=== PATIENT | female | born 1990 | race Caucasian/White ===

== ENCOUNTER 2023-01-05 17:26 | Emergency (ER) | payer BC, SELFPAY ==
[2023-01-05 17:36] VITALS: BP 136/81; PULSE 74; RESP 20; TEMP 36.9; O2SAT 100
[2023-01-05 17:39] VITALS: BP 136/81; PULSE 74; RESP 20; TEMP 36.9; O2SAT 100
--- NOTE | 2023-01-05 17:40 | ED.SKABFB ---
HPI - Skin/Abscess/Foreign Bdy General Chief complaint: Skin/Abscess/Foreign Body Stated complaint: Poison marco or oak Time Seen by Provider: 01/05/23 17:40 Source: patient Mode of arrival: ambulatory Limitations: no limitations History of Present Illness HPI narrative: 32-year-old female presenting for complaint of rash spreading to the face, neck, chest, abdomen over the past week. Denies lip, tongue, or throat swelling, shortness of breath or wheezing. Denies changes to soap, detergent, lotion, or any other exposures. Rash started after working in the yard. Sites are itchy. Denies pain or drainage. Denies contacts with similar symptoms. Taking Benadryl and applying calamine lotion. Related Data Allergies Allergy/AdvReac Type Severity Reaction Status Date / Time No Known Allergies Allergy Verified 01/05/23 17:39 Review of Systems Review of Systems: CONSTITUTIONAL: Denies body aches, fever, chills, or sweats. EYES: Denies visual changes, redness, or discharge. ENT: Denies rhinorrhea, congestion CARDIOVASCULAR: Denies chest pain, palpitations, or edema. RESPIRATORY: Denies cough or dyspnea. GASTROINTESTINAL: Denies abdominal pain, nausea, vomiting, or diarrhea. SKIN: per HPI MUSCULOSKELETAL: Denies back pain, joint pain, or myalgia. NEUROLOGIC: Denies headache, numbness, tingling, or weakness. [facility] Past Medical History Medical History (Updated 01/05/23 @ 17:49 by Manju Armas APRN) No pertinent past medical history Comments At time of signature, I have reviewed and agree with nursing past medical, surgical, social and family history unless otherwise noted. Please see nursing chart for further information. There is no relevant family history pertinent to the presenting complaint Exam Narrative: GENERAL: Well-appearing HEAD: Normocephalic, atraumatic. EYES: conjunctivae clear, and EOMI. ENT: Mucous membranes moist. Oropharynx without edema, erythema or lesions. NECK: Supple. No lymphadenopathy CHEST: Clear to auscultation. HEART: Regular rate and rhythm. SKIN: Warm, dry. Erythematous vesicular lesions to left face, neck, large area to right lower abdomen and scattered to arms c/w contact dermatitis NEURO: Alert and oriented x3. Course Course Emergency Course: Patient is aware of diagnosis, understands and agrees to treatment plan. Anticipatory guidance given. Patient agrees to follow-up as directed and is aware of reasons to seek care at the emergency department. Portions of this record may have been created with voice recognition software Level of Care: Express Care Visit Vital Signs Vital signs: Vital Signs Temperature 98.4 F 01/05/23 17:36 Pulse Rate 74 01/05/23 17:36 Respiratory Rate 20 01/05/23 17:36 Blood Pressure 136/81 01/05/23 17:36 Pulse Oximetry 100 01/05/23 17:36 Oxygen Delivery Room Air 01/05/23 17:36 Temperature 98.4 F 01/05/23 17:39 Pulse Rate 74 01/05/23 17:39 Respiratory Rate 20 01/05/23 17:39 Blood Pressure 136/81 01/05/23 17:39 Pulse Oximetry 100 01/05/23 17:39 Oxygen Delivery Room Air 01/05/23 17:39 Reviewed MDM - Skin/Abscess/Foreign Bdy MDM Narrative Medical decision making narrative: Discussed physical exam findings. Advised supportive measures and signs/symptoms to go to the ER. Pt is appropriate for outpt treatment and f/u. Instructed patient to go to nearest ER immediately for any worsening symptoms including but not limited to: fever, spreading rash, pain, sore throat, headache, dizziness, chest pain, trouble breathing, or any symptoms concerning to the patient. Differential Diagnosis Differential diagnosis: Likely abscess of skin or subcutaneous tissue, urticaria, herpes zoster, cellulitis and contact dermatitis Discharge Plan Discharge Clinical Impression: Contact dermatitis Patient Disposition: Home, Self-Care Condition: Stable Instructions: Antibiotic Form, General Allergic Reacti
== END 2023-01-05 17:50 | disposition home or self-care (01) ==
PROVIDERS: Emergency Provider Nurse Practitioner Family
DX: L25.9 Unspecified contact dermatitis, unspecified cause (principal)
CPT/HCPCS: 99213; G0463

== ENCOUNTER 2024-04-22 18:46 | Emergency (ER) | payer BC, SELFPAY ==
--- NOTE | ~2024-04-22 | XR_ITS ---
EXAMINATION: XR ankle RT min 3V DATE: 04/22/2024 19:09 INDICATION: Right ankle injury. TECHNIQUE: 4 views of right ankle were obtained. COMPARISON: None. FINDINGS: Bone alignment is normal. There is a small fragment of heterotopic ossification distal to l ateral malleolus. There is mild osteoarthritis of talonavicular joint. There are enthesophytes at the posterior and plantar aspects of calcaneal tuberosity. There is ankle soft tissue swelling. IMPRESSION: 1. Heterotopic ossification distal to lateral malleolus, which may be an acute avulsion fracture or a chronic finding. Reviewed, dictated and finalized at location E.
[2024-04-22 18:50] VITALS: BP 133/66; PULSE 83; RESP 20; TEMP 36.7; O2SAT 100
--- NOTE | 2024-04-22 18:58 | ED.LOWEXIN ---
HPI - Extremity Injury (Lower) General Chief Complaint: Extremity Injury, Lower Stated Complaint: Right ankle injury Source: patient Mode of arrival: ambulatory Limitations: no limitations History of Present Illness HPI Narrative: 34-year-old female presented for complaint of right ankle pain and swelling after injury today at 3:30 p.m.. She states she stepped off of a platform and rolled the ankle and foot was inverted. After the injury she applied ice and elevated the foot. Has not taken anything for pain. Pain is worse when tingling the foot were with attempting to walk. Related Data Allergies Allergy/AdvReac Type Severity Reaction Status Date / Time No Known Allergies Allergy Verified 04/22/24 19:03 Review of Systems Review of Systems: CONSTITUTIONAL: Denies body aches, fever, chills CARDIOVASCULAR: Denies chest pain, palpitations, or edema. RESPIRATORY: Denies cough or dyspnea. SKIN: Denies rash, itching, or wounds. MUSCULOSKELETAL: reports right ankle pain NEUROLOGIC: Denies headache, numbness, tingling, or weakness. All systems reviewed & are unremarkable except as noted in HPI and below PMFSH Past Medical History Medical History No pertinent past medical history Comments At time of signature, I have reviewed and agree with nursing past medical, surgical, social and family history unless otherwise noted. Please see nursing chart for further information. There is no relevant family history pertinent to the presenting complaint Exam Narrative: GENERAL: Well-appearing CHEST: Speaks in full sentences. No respiratory distress. HEART: Regular rate and rhythm. Normal and equal peripheral pulses. EXTREMITIES: Right foot has normal strength and sensation, limited range of motion with flexion/extension/rotation of right ankle, endorses pain with movement. Swelling noted to right ankle. Ecchymosis to Posterior malleolus, tenderness with palpation. No open wounds or obvious deformity; alignment normal, pulse palpable and equal bilaterally, skin warm, dry, pink. Capillary refill less than 3 seconds. SKIN: Warm, dry NEURO: Alert and oriented x3. PSYCH: Normal mood and affect Course Course Emergency Course: Patient is aware of diagnosis, understands and agrees to treatment plan. Anticipatory guidance given. Patient agrees to follow-up as directed and is aware of reasons to seek care at the emergency department. Portions of this record may have been created with voice recognition software Level of Care: [facility] Visit Vital Signs Vital signs: Vital Signs Temperature 98.1 F 04/22/24 18:50 Pulse Rate 83 04/22/24 18:50 Respiratory Rate 20 04/22/24 18:50 Blood Pressure 133/66 04/22/24 18:50 Pulse Oximetry 100 04/22/24 18:50 Oxygen Delivery Room Air 04/22/24 18:50 Temperature 98.1 F 04/22/24 18:50 Pulse Rate 83 04/22/24 18:50 Respiratory Rate 20 04/22/24 18:50 Blood Pressure 133/66 04/22/24 18:50 Pulse Oximetry 100 04/22/24 18:50 Oxygen Delivery Room Air 04/22/24 18:50 Reviewed Procedures Orthopedic Splinting/Casting right ankle: Splinting/Casting Date: 04/22/24 OCL: posterior Pre-Procedure Neuro Vascular Exam: normal Post-Procedure Neuro Vascular Exam: normal Other Orthopedic Equipment: crutches MDM - Extremity Injury (Lower) MDM Narrative Medical decision making narrative: Discussed physical exam findings and x-ray; most likely avulsion due to mechanism of injury. OCL applied. Advised supportive measures and signs/symptoms to go to the ER. Pt is appropriate for outpt treatment and f/u with ortho. Differential Diagnosis Differential diagnosis: Likely ankle sprain and strain, ankle fracture and other Imaging Data Radiologist's impression: Patient: Tania Hoffman : 1990 MR#: [id number] Age: 34 Acct:[id number] Loc: EXPBE ADM Date:
== END 2024-04-22 19:48 | disposition home or self-care (01) ==
PROVIDERS: Emergency Provider Nurse Practitioner Family
DX: M25.571 Pain in right ankle and joints of right foot (principal)
CPT/HCPCS: 29515; 73610; 99213; G0463